=== PATIENT | male | born 1940 | race Caucasian/White ===

== ENCOUNTER 2016-05-21 13:10 | Inpatient (IN) | payer OTHER ==
[~2016-05-21] VITALS: Ht 170.2 cm; Wt 71.8 kg
[~2016-05-21 13:10] MED LIST: ACTOS30 MG PO; BACTRIM,SEPT1 TABLET PO; CALCIUM 500 MG1 EACH GT; CALCIUM 500 MG1 EACH PO; CALCIUM 600 +1 EAC4 PO; CEFTIN250 MG/5 M PO; CYANOCOBAL1000 MCG/2 IM; DECADRON4 MG PO; DIABETIC FOOT CREAM; FOLIC ACID1 MG PO; GLUCOPHAGE1000 MG PO; HUMULIN R100 UNITS/ SC; INJECT-EASE1 EACH; KEPPRA500 MG PO; LANTUS 3 M100 UNITS1 SC; LASIX20 MG PO; LEVEMIR FL100 UNIT/1 SC; LEVETIRACETAM500 MG PO; LIPITOR10 MG PO; MARINOL5 MG PO; METFORMIN HCL1000 MG PO; NOVOLOG PE100 UNITS/ SC; NOVOLOG PE100 UNITS/ SQ; OSENI 25-15 MG1 EACH GT; OSENI 25-15 MG1 EACH PO; PROTONIX40 MG PO; VITAMIN D1000 INTUN PO; VITAMIN D31000 UNI2 GT; XALKORI250 MG PO; XARELTO15 MG PO; XARELTO20 MG PO; XGEVA120 MG/1.7 IV/IM; XGEVA120 MG/1.7 SC; ZYKADIA150 MG PO
[2016-05-21 15:34] LABS: HEMATOCRIT 36.1 % (38.0-50.0); MCH 27.5 PG (29.0-34.0); MCHC 31.6 G/DL (30.0-36.0); MCV 87.2 FL (86-99); MEAN PLAT.VOLUME 11.4 uM^3 (9.0-12.4); RBC DIS.WIDTH-CV 17.6 % (11.8-14.6); RBC DIS.WIDTH-SD 54.5 % (39-53); RED BLOOD COUNT 4.14 M/uL (4.00-5.50); WHITE BLOOD COUNT 11.7 K/uL (4.1-10.2)
[2016-05-21 15:45] LABS: CHLORIDE 100 mEq/L (99-109); PLATELET COUNT 310 K/uL (156-360); POTASSIUM 4.7 mEq/L (3.7-5.4); SODIUM 143 mEq/L (136-147)
[2016-05-21 15:47] LABS: GLUCOSE 208 mg/dL (70-99)
[2016-05-21 15:48] LABS: ANION GAP 11 MEQ/L (2-14)
[2016-05-21 15:50] LABS: GFR ESTIMATE (CALCULATED) > 59 mL/min/
[2016-05-21 15:51] LABS: UREA NITROGEN (BUN) 34 mg/dL (9-23)
[2016-05-21 15:59] LABS: TROP-I INTERPRETATION NEGATIVE; TROPONIN-I 0.01 ng/mL (0.0-0.30)
[2016-05-21] MEDS ORDERED: NOVOLIN,HU100 UNITS1 SC (18:16)
[2016-05-21] MEDS ORDERED: LEVEMIR FL100 UNIT/1 SC (18:17)
[2016-05-21 21:00] VITALS: BP 110/72
[2016-05-21 22:07] VITALS: BP 110/72
[2016-05-21 23:15] VITALS: BP 97/57
[2016-05-22 03:45] VITALS: BP 95/62
[2016-05-22 06:28] LABS: HEMATOCRIT 33.5 % (38.0-50.0); MCH 26.9 PG (29.0-34.0); MCHC 30.7 G/DL (30.0-36.0); MCV 87.5 FL (86-99); MEAN PLAT.VOLUME 11.4 uM^3 (9.0-12.4); PLATELET COUNT 277 K/uL (156-360); RBC DIS.WIDTH-CV 17.7 % (11.8-14.6); RBC DIS.WIDTH-SD 54.8 % (39-53); RED BLOOD COUNT 3.83 M/uL (4.00-5.50); WHITE BLOOD COUNT 12.6 K/uL (4.1-10.2)
[2016-05-22 06:57] LABS: INTER. NORMALIZED RATIO 1.2; PTT 29.6 (25-32)
[2016-05-22 06:58] LABS: EOSINOPHIL (%) 0.2 % (0-5); IMMATURE GRANULOCYTE (%) 0.3 % (0.0-0.7); LYMPHOCYTE COUNT 0.9 K/uL (1.0-2.8); MONOCYTE (%) 6.2 % (3-12); MONOCYTE COUNT 0.8 K/uL (0-0.8); NEUTROPHIL (%) 86.1 % (45-76); NEUTROPHIL COUNT 10.8 K/uL (1.8-6.4)
[2016-05-22 07:05] LABS: ALKALINE PHOSPHATASE 90 IU/L (3-129); ANION GAP 12 MEQ/L (2-14); CHLORIDE 100 MEQ/L (99-109); GFR ESTIMATE (CALCULATED) > 59 mL/min/; POTASSIUM 4.3 MEQ/L (3.7-5.4); SAMPLE HEMOLYSIS CHECK 0; SAMPLE ICTERIC CHECK 0; SAMPLE LIPEMIA CHECK 0; SODIUM 141 MEQ/L (136-147); TOTAL BILIRUBIN 0.5 MG/DL (0.0-1.0); UREA NITROGEN (BUN) 25 mg/dL (9-23)
[2016-05-22 07:10] LABS: GLUCOSE 90 mg/dL (70-99)
[2016-05-22 07:18] VITALS: BP 104/63
[2016-05-22 07:42] LABS: GLUCOSE (STRIP) NEGATIVE; KETONES 15
[2016-05-22 07:47] LABS: COLOR YELLOW ((YELLOW)); LEUKOCYTES NEGATIVE; NITRITE NEGATIVE
[2016-05-22 07:48] LABS: ADD MIUA? YES; BILIRUBIN NEGATIVE; BLOOD NEGATIVE; PH, URINE 7.5 (5-8); PROTEIN (STRIP) TRACE
[2016-05-22 07:49] LABS: POINT-OF-CARE METER ID UU13113781; POINT-OF-CARE USER ID ENVKC36
[2016-05-22 08:06] LABS: AMORPHOUS PHOSPHATE CRYSTALS 3+; BACTERIA NONE SEEN; CASTS NONE SEEN /LPF; CRYSTALS NONE SEEN; EPITHELIAL CELLS RARE; MUCUS NONE SEEN; RED BLOOD CELLS NONE SEEN /HPF (0-5); WHITE BLOOD CELLS NONE SEEN /HPF (0-5)
[2016-05-22 11:25] VITALS: BP 109/59
[2016-05-22 11:57] LABS: POINT-OF-CARE METER ID UU13113781; POINT-OF-CARE USER ID ENVKC36
[2016-05-22 16:04] VITALS: BP 110/59
[2016-05-22 16:38] LABS: POINT-OF-CARE METER ID UU13113781; POINT-OF-CARE USER ID ENVKC36
[2016-05-22 19:26] VITALS: BP 118/61
[2016-05-22 22:32] LABS: POINT-OF-CARE METER ID UU13113781
[2016-05-23] VITALS (7 sets, daily range): BP systolic 11–116; BP diastolic 55–59
[2016-05-23 07:06] LABS: ANION GAP 12 MEQ/L (2-14); CHLORIDE 94 MEQ/L (99-109); GFR ESTIMATE (CALCULATED) > 59 mL/min/; POTASSIUM 4.7 MEQ/L (3.7-5.4); SAMPLE HEMOLYSIS CHECK 0; SAMPLE ICTERIC CHECK 0; SAMPLE LIPEMIA CHECK 0
[2016-05-23 07:07] LABS: GLUCOSE 298 mg/dL (70-99); SODIUM 133 MEQ/L (136-147); UREA NITROGEN (BUN) 42 mg/dL (9-23)
[2016-05-23 07:43] LABS: POINT-OF-CARE METER ID UU14174216
[2016-05-23 11:24] LABS: POINT-OF-CARE METER ID UU14174216
[2016-05-23 16:30] LABS: POINT-OF-CARE METER ID UU14174216
[2016-05-23 20:49] LABS: POINT-OF-CARE METER ID UU14174216
[2016-05-24 02:22] VITALS: BP 98/53
[2016-05-24 07:16] VITALS: BP 103/57
[2016-05-24 07:32] LABS: ANION GAP 8 MEQ/L (2-14); CHLORIDE 101 MEQ/L (99-109); GFR ESTIMATE (CALCULATED) > 59 mL/min/; POTASSIUM 4.1 MEQ/L (3.7-5.4); SAMPLE HEMOLYSIS CHECK 0; SAMPLE ICTERIC CHECK 0; SAMPLE LIPEMIA CHECK 0; SODIUM 138 MEQ/L (136-147); UREA NITROGEN (BUN) 32 mg/dL (9-23)
[2016-05-24 07:33] LABS: GLUCOSE 116 mg/dL (70-99)
[2016-05-24 07:39] LABS: EOSINOPHIL (%) 0.1 % (0-5); HEMATOCRIT 30.6 % (38.0-50.0); IMMATURE GRANULOCYTE (%) 0.6 % (0.0-0.7); IMMATURE GRANULOCYTE COUNT 0.1 K/uL; LYMPHOCYTE COUNT 0.9 K/uL (1.0-2.8); MCHC 32.7 G/DL (30.0-36.0); MCV 85.7 FL (86-99); MONOCYTE (%) 4.9 % (3-12); MONOCYTE COUNT 0.8 K/uL (0-0.8); NEUTROPHIL COUNT 14.7 K/uL (1.8-6.4); RBC DIS.WIDTH-CV 17.4 % (11.8-14.6); RBC DIS.WIDTH-SD 53.7 % (39-53); RED BLOOD COUNT 3.57 M/uL (4.00-5.50)
[2016-05-24 07:43] LABS: WHITE BLOOD COUNT 16.6 K/uL (4.1-10.2)
[2016-05-24 08:31] LABS: MEAN PLAT.VOLUME 11.3 uM^3 (9.0-12.4); PLAT.SUFFICIENCY ADEQUATE; PLATELET COUNT 240 K/uL (156-360)
[2016-05-24 13:46] LABS: TYPE OF FLUID PLEURAL
[2016-05-24 14:15] LABS: BODY FLUID LDH 245 IU/L; BODY FLUID PROTEIN 3.1 G/DL
[2016-05-24 14:16] LABS: BODY FLUID RBC'S 2000 /MM^3 (0-100); BODY FLUID WBC'S 219 /MM^3 (0-500)
[2016-05-24 14:32] VITALS: BP 106/61
[2016-05-24 14:42] LABS: BODY FLUID EOSINOPHILS 1 % (0-25); MONO RAW COUNT 95; MONONUCLEAR WBC'S 95 %; POLY RAW COUNT 4; POLYNUCLEAR WBC'S 4 % (0-25)
[2016-05-24 19:13] VITALS: BP 98/49
[2016-05-24 22:21] VITALS: BP 96/53
[2016-05-25 03:14] VITALS: BP 133/63
[2016-05-25 06:14] LABS: HEMATOCRIT 28.4 % (38.0-50.0); MCH 27.6 PG (29.0-34.0); MCHC 31.7 G/DL (30.0-36.0); MCV 87.1 FL (86-99); MEAN PLAT.VOLUME 12.1 uM^3 (9.0-12.4); PLATELET COUNT 212 K/uL (156-360); RBC DIS.WIDTH-CV 17.4 % (11.8-14.6); RBC DIS.WIDTH-SD 54.8 % (39-53); RED BLOOD COUNT 3.26 M/uL (4.00-5.50); WHITE BLOOD COUNT 14.7 K/uL (4.1-10.2)
[2016-05-25 06:29] LABS: EOSINOPHIL (%) 0 % (0-5); IMMATURE GRANULOCYTE (%) 0.3 % (0.0-0.7); LYMPHOCYTE COUNT 0.3 K/uL (1.0-2.8); MONOCYTE (%) 4.2 % (3-12); MONOCYTE COUNT 0.6 K/uL (0-0.8); NEUTROPHIL (%) 93.3 % (45-76); NEUTROPHIL COUNT 13.7 K/uL (1.8-6.4)
[2016-05-25 06:46] LABS: ANION GAP 7 MEQ/L (2-14); CHLORIDE 102 MEQ/L (99-109); GFR ESTIMATE (CALCULATED) > 59 mL/min/; POTASSIUM 4.7 MEQ/L (3.7-5.4); SAMPLE HEMOLYSIS CHECK 0; SAMPLE ICTERIC CHECK 0; SAMPLE LIPEMIA CHECK 0; SODIUM 137 MEQ/L (136-147); UREA NITROGEN (BUN) 32 mg/dL (9-23)
[2016-05-25 06:53] LABS: GLUCOSE 290 mg/dL (70-99)
[2016-05-25 07:51] VITALS: BP 120/59
[2016-05-25 12:11] VITALS: BP 109/56
[2016-05-25 15:38] VITALS: BP 120/60
[2016-05-25 19:09] VITALS: BP 106/52
[2016-05-25 20:22] LABS: POINT-OF-CARE METER ID UU13113698
[2016-05-25 21:37] LABS: POINT-OF-CARE METER ID UU13113698
[2016-05-25 22:36] VITALS: BP 113/56
[2016-05-26 04:08] VITALS: BP 95/54
[2016-05-26 07:14] VITALS: BP 111/55
[2016-05-26 11:11] LABS: POINT-OF-CARE METER ID UU13113698
[2016-05-26 11:30] VITALS: BP 99/56
[2016-05-26 16:12] VITALS: BP 125/63
[2016-05-26 16:19] LABS: POINT-OF-CARE METER ID UU13113698
[2016-05-26 19:11] VITALS: BP 116/59
[2016-05-26 21:13] LABS: POINT-OF-CARE METER ID UU13113698
[2016-05-26 21:52] LABS: POINT-OF-CARE METER ID UU13113698
[2016-05-26 21:52] LABS: POINT-OF-CARE METER ID UU13113698
[2016-05-26 22:05] LABS: POINT-OF-CARE METER ID UU13113698
[2016-05-26 22:24] LABS: POINT-OF-CARE USER ID ENVMNS
[2016-05-26 23:03] VITALS: BP 126/61
[2016-05-27 01:39] VITALS: BP 110/70
[2016-05-27 03:20] VITALS: BP 100/60
== END 2016-05-27 09:39 | DRG 181 ==
LOC: RME 13:10 → EME 13:10 → 4EAST 18:15 → EDOF 18:15 → 4EAST 20:51
PROVIDERS: Family Medicine; Nurse Practitioner Family; Radiology Diagnostic Radiology; Thoracic Surgery (Cardiothoracic Vascular Surgery)
PROC: 0W993ZZ Drainage of Right Pleural Cavity, Percutaneous Approach (ICD-10-PCS; principal; 2016-05-24)
PROC: 0BB48ZX Excision of Right Upper Lobe Bronchus, Via Natural or Artificial Opening Endoscopic, Diagnostic (ICD-10-PCS; 2016-05-24)
PROC: 0BJ08ZZ Inspection of Tracheobronchial Tree, Via Natural or Artificial Opening Endoscopic (ICD-10-PCS; 2016-05-24)
DX: C78.2 Secondary malignant neoplasm of pleura (principal); J94.8 Other specified pleural conditions; C34.11 Malignant neoplasm of upper lobe, right bronchus or lung; C79.31 Secondary malignant neoplasm of brain; J98.19 Other pulmonary collapse; J98.11 Atelectasis; Z68.1 Body mass index [BMI] 19.9 or less, adult; J90 Pleural effusion, not elsewhere classified; Z66 Do not resuscitate; Z51.5 Encounter for palliative care; N18.2 Chronic kidney disease, stage 2 (mild); R13.10 Dysphagia, unspecified; Z93.1 Gastrostomy status; J20.9 Acute bronchitis, unspecified; E11.65 Type 2 diabetes mellitus with hyperglycemia; E11.22 Type 2 diabetes mellitus with diabetic chronic kidney disease; E78.5 Hyperlipidemia, unspecified; E55.9 Vitamin D deficiency, unspecified; G47.00 Insomnia, unspecified; D64.9 Anemia, unspecified; R63.6 Underweight; Z86.718 Personal history of other venous thrombosis and embolism; Z86.73 Personal history of transient ischemic attack (TIA), and cerebral infarction without residual deficits; Z79.4 Long term (current) use of insulin
CPT/HCPCS: 70450; 71010; 71020; 71270; 80048; 80053; 81003; 82945; 82948; 83615 91; 84157; 84484; 85025; 85027; 85610; 85730; 87070; 87116; 87205; 87206; 88108; 88305; 89051; 93005; 94640 76; 94667; 94760; 94799; 99202; 99281; 99285; J1100; J1650; J1815; J1956; J2060; J2270; J2405; J2543; J7050; J7120; J7512